=== PATIENT | female | born 1985 | race Two or more races ===

== ENCOUNTER 2025-01-03 13:52 | Emergency (ER) | payer MEDICAID, SELFPAY ==
[2025-01-03 13:53] VITALS: BMI 29.8
[2025-01-03 14:27] VITALS: BP 125/80; PULSE 75; RESP 18; TEMP 36.8; O2SAT 99
--- NOTE | 2025-01-03 14:37 | XR_ITS ---
Examination: Abdomen sonogram, Limited Date and time of exam: 01/03/2025 at 2:41 p.m. INDICATION: Right upper quadrant pain for 3 days COMPARISON: None Technique: Real-time ruiz scale transabdominal sonographic images of the upper abdomen obtained. Findings: Gallbladder: No cholelithiasis or sludge. No abnormal gallbladder wall thickening or pericholecystic fluid. No reported pain with direct transducer pressure over the gallbladder. The common bile duct measures 0.2 cm. No intrahepatic bile duct dilatation. Liver demonstrates normal size and smooth contours. No focal lesion identified. Color Doppler demonstrates patency of the main portal vein with normal hepatopetal flow. Color Doppler also shows hepatic venous flow and flow in the IVC. The visualized portion of the pancreas appears normal. No right upper quadrant ascites. The partially the imaged right kidney is unremarkable. IMPRESSION: Negative ultrasound for cholelithiasis, acute cholecystitis or biliary ductal obstruction. No other significant finding is detected in the right upper quadrant.
--- NOTE | 2025-01-03 14:39 | PD.EDRME ---
Rapid Medical Screening Exam [facility] Arrival date/time: 01/03/25 13:52 39-year-old female with history of type 2 diabetes presents to the emergency room with a chief complaint of epigastric and right upper quadrant abdominal tenderness x 2 days I have greeted and performed a focused initial assessment of this patient. A comprehensive ED assessment and evaluation of the patient, analysis of all test results, and completion of the medical decision making process will be conducted by additional ED providers. Chief Complaint: Abdominal Pain Time Seen by Provider: 01/03/25 14:19 Vital signs: Vital Signs Temperature 98.3 F 01/03/25 14:27 Pulse Rate 75 01/03/25 14:27 Respiratory Rate 18 01/03/25 14:27 Blood Pressure 125/80 01/03/25 14:27 Pulse Oximetry (%) 99 01/03/25 14:27 Oxygen Delivery Method Room Air 01/03/25 14:27 Vital signs reviewed by provider: Yes Exam: Right upper quadrant abdominal tenderness with palpation. Positive Curran sign Strong and regular rhythm clear bilateral lung sounds Clinical Impression: Cholelithiasis/cholecystitis/abdominal pain/gastritis/gastroenteritis
[2025-01-03 14:52] LABS: Basophils # (Auto) 0.0 Thou/mm3 (0.0-0.2); Basophils % (Auto) 0 % (0-2.5); Eosinophils # (Auto) 0.1 Thou/mm3 (0.0-0.5); Eosinophils % (Auto) 1 % (0-10); Hematocrit 38.9 % (36.0-46.0); Hemoglobin 13.1 g/dL (12.0-16.0); Immature Granulocytes Auto 0.05 Thou/mm3 (0.00-0.00); Lymphocytes # (Auto) 3.3 Thou/mm3 (1.0-4.8); Lymphocytes % (Auto) 28 % (10-50); Mean Corpuscular HGB Conc 33.7 g/dl (31.0-37.0); Mean Corpuscular Hemoglobin 27.1 pg (25.0-35.0); Mean Corpuscular Volume 81 fL (80-100); Monocytes # (Auto) 0.6 Thou/mm3 (0.0-0.8); Monocytes % (Auto) 5 % (0-12); Neutrophils # (Auto) 7.9 Thou/mm3 (1.8-7.7); Neutrophils % (Auto) 66 % (37-80); Nucleated Red Blood Cell # 0.00 Thou/mm3 (0.00-0.00); Nucleated Red Blood Cell % 0 /100 WBC (0); Platelet Count 257 Thou/mm3 (140-440); RDW Standard Deviation 35.2 fL (36.4-46.3); Red Blood Count 4.83 Miln/mm3 (4.00-5.20); White Blood Count 11.9 Thou/mm3 (3.6-11.0)
[2025-01-03] MEDS: HYDROcodone/APAP 5/325 TABLET 1 TAB PO (14:56)
[2025-01-03] MEDS: MG HYD/AL HYD/SIME (Maalox Reg) SUSP 30 ML UDC PO (14:56)
[2025-01-03] MEDS: ONDANSETRON ODT 4 MG TABRAP PO (14:57)
[2025-01-03 15:20] LABS: Alanine Aminotransferase 10 U/L (10-49); Albumin, Serum 4.6 gm/dL (3.5-5.0); Albumin/Globulin Ratio 1.8 (1.2-2.2); Alkaline Phosphatase 50 U/L (46-116); Anion Gap 7 (7-16); Aspartate Amino Transferase 13 U/L (0-34); BUN/Creatinine Ratio 15 Ratio (12-20); Bilirubin,Total 0.6 mg/dL (0.3-1.2); Blood Urea Nitrogen 9 mg/dL (9-23); Calcium 9.2 mg/dL (8.3-10.6); Calcium (Corrected) 9.2 mg/dL (8.5-10.1); Carbon Dioxide 27.8 mMol/L (20.0-31.0); Chloride 105 mMol/L (98-107); Creatinine (Component) 0.6 mg/dL (0.6-1.3); Estimated Creatinine Clearance 129.2 mL/min (>60); Globulin 2.6 gm/dL (2.3-3.5); Glucose 115 mg/dL (74-106); Lipase 45 U/L (12-53); Osmolality,Calculated 279 (275-295); Potassium 4.1 mMol/L (3.4-5.1); Sodium 140 mMol/L (136-145); Total Protein 7.2 gm/dL (5.7-8.2); eGFR > 60 See Note
[2025-01-03 15:23] LABS: Collection Type, Urine Clean Catch
[2025-01-03 15:33] LABS: Bilirubin,Urine Negative (Negative); Blood,Urine Negative (Negative); Clarity,Urine Clear (Clear/Hazy); Color,Urine Lt-Yellow (Lt Yel-Yel); Glucose, Urine Negative (Negative); Ketones,Urine Negative (Negative); Leukocyte Esterase,Urine Negative (Negative); Nitrite,Urine Negative (Negative); PH,Urine 7.0 (5.0-7.0); Protein,Urine Negative (Neg - Trace); RBC,Urine 2 /hpf (0-3); Specific Gravity,Urine 1.017 (1.001-1.035); Squamous Epithelial Cell,Urine 2 /hpf (0-5); Urobilinogen,Urine Negative mg/dL (0.0-1.0); WBC,Urine 1 /hpf (0-5)
[2025-01-03 16:09] LABS: HCG Qualitative,Urine Negative
--- NOTE | 2025-01-03 16:27 | PD.EDABDPN ---
ED Abdominal Pain RME/HPI General Chief Complaint: Abdominal Pain Stated complaint: UPPER ABD PAIN WITH NAUSEA SINCE X WED Time seen by provider: 01/03/25 14:19 Arrival date/time: 01/03/25 13:52 39-year-old female patient with significant history of diabetes mellitus, came in for evaluation regarding epigastric pain has been ongoing since Monday, described as burning-like sensation severity moderate associated with nausea denies any vomiting. Patient was seen in [place] emergency room and was prescribed Carafate however there was no available medication in the pharmacy. Came here for second opinion. No fever no other complaints noted RME / HPI RME / HPI narrative: 01/03/25 13:52 39-year-old female with history of type 2 diabetes presents to the emergency room with a chief complaint of epigastric and right upper quadrant abdominal tenderness x 2 days I have greeted and performed a focused initial assessment of this patient. A comprehensive ED assessment and evaluation of the patient, analysis of all test results, and completion of the medical decision making process will be conducted by additional ED providers. Exam: Right upper quadrant abdominal tenderness with palpation. Positive Curran sign Strong and regular rhythm clear bilateral lung sounds Impression: Cholelithiasis/cholecystitis/abdominal pain/gastritis/gastroenteritis Related Data Home Medications ?Medication ?Instructions ?Recorded ?Confirmed insulin glargine 100 unit/mL 25 - 30 unit subcut BID 06/02/21 06/02/21 subcutaneous cartridge metformin 1,000 mg tablet 1,000 mg PO DAILY 06/02/21 06/02/21 Previous Rx's ?Medication ?Instructions ?Recorded amoxicillin 875 mg-potassium 1 tab PO BID #14 tabs 03/11/23 clavulanate 125 mg tablet famotidine 40 mg tablet (Pepcid) 40 mg PO BID #30 tabs 01/03/25 metoclopramide HCl 10 mg tablet 10 mg PO Q6H PRN nausea and 01/03/25 (Reglan) vomiting #30 tabs Allergies Allergy/AdvReac Type Severity Reaction Status Date / Time No Known Allergies Allergy Verified 01/03/25 13:55 Review of Systems Review of Systems Narrative Review of Systems: Review of system reviewed and within normal limits except mentioned in HPI ED Exam Narrative Physical exam: VITAL SIGNS: Reviewed. GENERAL APPEARANCE: Alert and interactive, follows commands, no acute distress, HEAD AND FACE: Non-traumatic. ENT: PERRL, pink conjunctivitis, eyelid no trauma, Mucous membrane moist. NECK: Supple, nontender, no nuchal rigidity. CHEST: No tenderness, no crepitus, no paradoxical movement, no retractions. LUNGS: Clear, well ventilated, symmetric, no rales, no wheezing, no ronchi, no stridor, good breath sounds bilaterally. HEART: Regular rate, regular rhythm, no murmur, no gallops. ABDOMEN: Soft, positive bowel sounds, nondistended, no guarding, epigastric tenderness, no rebound, no masses, RECTAL: Deferred. GENITAL: Deferred. NEUROLOGICAL: Gross motor function intact sensory function intact, Appropriate for age. MUSCULOSKELETAL: low back nontender, full range of motion. EXTREMITIES: Nontender, full range of motion. SKIN: Color pink, dry, no rash, no lacerations, no abrasions, no contusions. LYMPHATICS: Deferred. Course Quality Measures none Orders Category Date Time Status US gall bladder Stat Exams 01/03/25 14:37 Completed CBC Stat Lab 01/03/25 14:44 Completed CMP [Comprehensive Metabolic Panel] Stat Lab 01/03/25 14:44 Completed HCG Qualitative,Urine Stat Lab 01/03/25 15:15 Completed Lipase Stat Lab 01/03/25 14:44 Completed UA [Urinalysis] Stat Lab 01/03/25 15:15 Completed Urine Culture Stat Lab 01/03/25 15:15 Received HYDROcodone*/APAP 5/325 [[place] 5/325] Med 01/03/25 14:45 Discontinued 1 tab PO X1 ONE Ondansetron Odt [Zofran Odt] Med 01/03/25 14:45 Discontinued 4 mg PO X1 ONE mg Hyd/Al Hyd/Leo Susp [Maalox Susp] Med 01/03/25 14:45 Discontinued 30 ml PO X1 ONE Vital Signs Vital signs: Vital Signs Temperature 98.3 F 01/03/25 14:27 Pulse Rate 75 01/03/25 14:27 Respiratory Rate 18 01/03/25 14:27 Blood Pressure 125/80 01/03/25 14:27 Pulse Oximetry (%) 99 01/03/25 14:27 Oxygen Delivery Method Room Air 01/03/25 14:27 Abdominal Pain MDM MDM Narrative MDM Narrative:: 01/03/25 13:52 39-year-old female patient with significant history of diabetes mellitus, came in for evaluation regarding epigastric pain has been ongoing since Monday, described as burning-like sensation severity moderate associated with nausea denies any vomiting. Patient was seen in [place] emergency room and was prescribed Carafate however there was no available medication in the pharmacy. Came here for second opinion. No fever no other complaints noted Patient laboratory workup all came back unremarkable including ultrasound of gallbladder that came back normal. Results discussed with the patient. Patient was sent home on Reglan and Pepcid. Stable discharge home for gastritis diagnosis. Patient data External records reviewed:: None Clinical information provided by:: patient Social determinants that could affect healthcare access:: none Patient has the following chronic illnesses:: Diabetes mellitus How is presenting disease/condition affected by chronic disease/condition?: exacerbated by Evaluation data The following diagnostics were reviewed and interpreted by me:: lab results and radiology exam(s) Lab and/or radiology exams considered but not ordered:: None Interpretation Summary: See results MDM Medications / Prescriptions Medications or Prescriptions considered but not ordered:: None Medication administrations:: Medication Administration History Discontinued Medications Hydrocodone Bitart/Acetaminophen (Hydrocodone/[place]ap 5/325 Tablet) 1 tab PO X1 ONE Stop: 01/03/25 14:46 Last Admin: 01/03/25 14:56 Dose: 1 tab Documented By: BD Al Hydrox/Mg Hydrox/Simethicone (Mg Hyd/Al Hyd/Leo (Maalox Reg) Susp 30 Ml Udc) 30 ml PO X1 ONE Stop: 01/03/25 14:46 Last Admin: 01/03/25 14:56 Dose: 30 ml Documented By: BD Ondansetron HCl (Ondansetron Odt 4 Mg Tabrap) 4 mg PO X1 ONE; Protocol Stop: 01/03/25 14:46 Last Admin: 01/03/25 14:57 Dose: 4 mg Documented By: BD Zofrarmando Maalorosa m, [place] Consultations Consultation(s) initiated? (list below): No Diagnosis Differential diagnosis abdominal pain: abdominal pain, constipation, gastroenteritis and pancreatitis Most likely diagnosis given after review of the tests above:: Gastritis Admission Indicated Admission indicated?: not indicated Admission Request Was there a request for admission?: No Disposition Plan Disposition Plan: Discharge Discharge Attestation Discharge Attestation: The patient and all family members were given an opportunity to ask questions and understood the discharge instructions. Discharge instructions specifically effects, indications for sooner follow up or return to the emergency department, and the expected course of current diagnosis. Patient condition: Stable Discharge Plan Plan Patient Disposition: HOME (Self Care) Discharge Disposition comment: Stable Prescriptions/Referrals Prescriptions/Med Rec: New metoclopramide HCl [Reglan] 10 mg tablet 10 mg PO Q6H PRN (Reason: nausea and vomiting) Qty: 30 0RF famotidine [Pepcid] 40 mg tablet 40 mg PO BID Qty: 30 0RF No Action metformin 1,000 mg Tablet 1,000 mg PO DAILY Lantus U-100 Insulin 100 unit/mL Cartridge 25 - 30 unit SUBCUT BID amoxicillin-pot clavulanate 875-125 mg tablet 1 tab PO BID Qty: 14 0RF Referrals: Benji Mcqueen MD [Primary Care Provider, Family Practice] - In 1 week Problem List Clinical Impression: Gastritis Patient/Caregiver Discharge Instructions Discharge Activity: activity as tolerated Education Materials: Treating Gastritis Additional Instructions: Thank you for the opportunity for serving you today. You are stable for discharged . You are advised to: Follow-up with your PCP in 1 to 2 days Return to ED for worsening of symptoms Increase oral fluids Take medication as prescribed Print Language: Persian Stand Alone Forms: [place] Award Info., Patient Portal Info Letter DERRICK/RIGO Supervising Physician DERRICK/RIGO Supervising Physician: MD Josy
== END 2025-01-03 16:57 | disposition home or self-care (01) ==
PROVIDERS: Nurse Practitioner Family; Emergency Provider Family Medicine; PCP Family Medicine
DX: K29.70 Gastritis, unspecified, without bleeding (principal); E11.9 Type 2 diabetes mellitus without complications
CPT/HCPCS: 36415; 76705; 80053; 81001; 81025; 83690; 85025; 87086; 99283; Q0162; A9270